=== PATIENT | male | born 1955 | race African-American/Black ===

== ENCOUNTER → 2016-12-13 | Outpatient (CLI) | payer BC ==
[2014-07-29 10:48] VITALS: BP 126/85
[~2016-12-13] MED LIST: ATOR20TA PO; Aspirin PO; BENA5TAB PO; CLOP75TA27 PO; Isosorbide Mononitrate PO; LISI10TA PO; Metoprolol Tartrate PO
--- NOTE | 2016-12-13 15:05 | KCIC ---
Bilateral SHOULDER , 3 VIEWS Clinical Indication: Bilateral Shoulder pain x1 month. No known injury. Comparison: None. Findings: Right: There is no acute fracture or dislocation. Mild degenerative changes. The visualized lung is clear. There is no evidence of a displaced rib fracture. There is no soft tissue abnormality. Left: There is no acute fracture or dislocation. Mild degenerative changes. 5 mm calcified granuloma left upper lung. The visualized lung is otherwise clear. Calcified left hilar lymph nodes. There is no evidence of a displaced rib fracture. There is no soft tissue abnormality. IMPRESSION: 1. No acute fracture or dislocation. 2. 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 Electronically signed by: Zaire Thomson MD (12/13/2016 3:01 PM)
== END | disposition home or self-care (01) ==
LOC: KCIC 13:52
PROVIDERS: ATTEND Internal Medicine
DX: M19.012 Primary osteoarthritis, left shoulder (principal); M19.011 Primary osteoarthritis, right shoulder
CPT/HCPCS: 73030

== ENCOUNTER → 2017-06-15 | Outpatient (CLI) | payer BC ==
[2014-07-29 10:48] VITALS: BP 126/85
[~2017-06-15] MED LIST changes: -CLOP75TA27 PO; +CLOP75TA57 PO; +REGADENOSON 0.4 MG/5 ML DISP.SYRIN. IV ONE
--- NOTE | 2017-06-15 12:15 | RAD ---
APPROVED REPORT Test Type: Pharmacological Stress Nurse/Tech: Demetra Hurley R.N. Test Indications: CAD, dizziness, SZ Cardiac History: cardiac stent x1,htn, smoker Medications: See Electronic Medical Record Medical History: See Electronic Medical Record Resting ECG: SB/SR w/ some ST elevation in leads V2-V4 and a BBB Resting Heart Rate: 60 bpm Resting Blood Pressure: 152/86mmHg Pretest Chest Pain: No chest pain Nurse/Tech Notes S1S2, lungs STA Consent: The procedure was explained to the patient in lay terms. Informed consent was witnessed. Quintin eout was entered into [email or web address]. History and Stress Test performed by RT Rani (Paulina) (N) Pharm. Details Pharmacologic stress testing was performed using 0.4mg per 5ml of regadenoson given intravenously ove r 7-10 seconds. Stress Symptoms Some SOB which he quickly recovered from POST EXERCISE Reason for Termination: Infusion complete Max HR: 96 bpm Max Blood Pressure: 174/83mmHg Blood Pressure response to exercise: Normal blood pressure response during stress. Heart Rate response to exercise: wnl Chest Pain: No. Arrhythmia: No. one noted pvc INTERPRETATION Stress EKG Conclusion: The resting EKG shows a sinus rhythm, right bundle branch block and nonspecifi c ST-T wave changes. The stress EKG shows no significant changes from baseline. No EKG evidence of stressed induced ischemia. Imaging Protocol IMAGE PROTOCOL: Rest Tc-99m/stress Tc-99m 1 day Rest: Stress: Viability: Radiopharm.Tc99m HuinmlctfPa82x Sestamibi [id number] 33.4mCi Duration 15min. 10min. Img Date 06/15/2017 06/15/2017 Inj-Img [id number]. 60min. Rest Admin Site:IV - Right AntecubitalAdministrator:RT Kaz Saravia)(N) Stress Admin Site: IV - Right AntecubitalAdministrator: ELYSIA Luevano STRESS DATA End Diast. Vol.178.0mlAv. Heart Rate58.0bpm End Syst. Vol.114.0mlCO Index BSA0.0L/min Myocardial Fnzy578.0gEject. Kkibifzz15.0% Stress Rates Pk. Fill Rate1.24EDV/secLVtime Pk. Fill 284.55msec Pk. Empty Rate2.06ESV/secLVtime Pk. Ujakw849.95msec 1/3 Pk. Fill0.44EDV/sec Stress Scores Regional WT2.00Summed WT30.00 Regional WM0.00Summed WM22.00 LV Perfusion Stress scans show an anterior septal apical defect. Rest scans show an anterior septal apical defect. 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 Wall Motion Left ventricular systolic function shows global hypokinesis more severe in the apical septal region. Ejection fraction is 36%. LV Perf. Quant 17 Seg. SSS5.00 17 Seg. SRS9.00 17 Seg. SDS1.00 Stress Defect Extent (% LAD)16.90Rest Defect Extent (% LAD)11.30Rev. Defect Extent (% LAD)0.00 Stress Defect Extent (% LCX) 8.80Rest Defect Extent (% LCX)8.80Rev. Defect Extent (% LCX)0.00 Stress Defect Extent (% RCA)0.00Rest Defect Extent (% RCA)18.90Rev. Defect Extent (% RCA)0.00 Stress Defect Extent (% JEANNE)7.60Rest Defect Extent (% JEANNE)10.20Rev. Defect Extent (% JEANNE)0.00 Conclusion 1. Abnormal baseline EKG but no EKG evidence of stressed induced ischemia. 2. Nuclear imaging shows no significant reversible ischemia. 3. 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 4. LV systolic function is decreased at 36% with global hypokinesis more severe in the apical septal region. 5. Moderate to moderately low risk Lexiscan nuclear stress test.
== END | disposition home or self-care (01) ==
LOC: NM 08:35
PROVIDERS: ATTEND Internal Medicine Cardiovascular Disease
DX: I25.10 Atherosclerotic heart disease of native coronary artery without angina pectoris (principal); I49.5 Sick sinus syndrome; I10 Essential (primary) hypertension; Z79.01 Long term (current) use of anticoagulants; Z87.891 Personal history of nicotine dependence
CPT/HCPCS: 78452; 93017; 96374; 96375; 96376; A9500; J2785

== ENCOUNTER → 2017-07-05 | Outpatient (CLI) | payer BC | END | disposition home or self-care (01) | LOC: RT 12:05 | DX: R56.9 Unspecified convulsions (principal) | CPT/HCPCS: 95816 ==